=== PATIENT | female | born 1985 | race Two or more races ===

== ENCOUNTER 2018-12-08 06:30 | Emergency (ER) | payer SELFPAY ==
[~2018-12-08] VITALS: Ht 162.6 cm; Wt 59.0 kg
[2018-12-08] VITALS (7 sets, daily range): BP systolic 122–139; BP diastolic 61–89
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
--- NOTE | 2018-12-08 07:10 | NUR ---
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 Pt still unable to answer questions. [employer] at the bed side for investigation.
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
--- NOTE | 2018-12-08 08:05 | NUR ---
ED Nurse Note: Noted pt throwing up. Dr Liu notified of coffee ground emesis.
--- NOTE | 2018-12-08 08:14 | NUR ---
ED Nurse Note: Blood sent.
[2018-12-08 08:18] LABS: HEMATOCRIT 42.4 % (37.0-47.0); HEMOGLOBIN 13.9 G/DL (12.0-16.0); MEAN CORPUSCULAR VOLUME 89 FL (80-99); PLATELET COUNT 452 K/UL (150-450); RED BLOOD COUNT 4.75 M/UL (4.20-5.40); RED CELL DISTRIBUTION WIDTH 12.6 % (11.6-14.8)
[2018-12-08 08:29] LABS: WHITE BLOOD COUNT 31.6 K/UL (4.8-10.8)
--- NOTE | 2018-12-08 08:30 | NUR ---
ED Nurse Note: Dr Liu notified of WBC 31.6
[2018-12-08 08:35] LABS: ALANINE AMINOTRANSFERASE 49 U/L (12-78); ALBUMIN/GLOBULIN RATIO 1.1 (1.0-2.7); ALKALINE PHOSPHATASE 109 U/L (46-116); ANION GAP 9 mmol/L (5-15); ASPARTATE AMINO TRANSFERASE 64 U/L (15-37); BILIRUBIN,TOTAL 0.6 MG/DL (0.2-1.0); BLOOD UREA NITROGEN 12 mg/dL (7-18); CALCIUM 9.5 MG/DL (8.5-10.1); CARBON DIOXIDE 26 MMOL/L (21-32); CHLORIDE 103 MMOL/L (98-107); CREATININE 1.1 MG/DL (0.55-1.30); POTASSIUM 2.8 MMOL/L (3.5-5.1); SODIUM 138 MMOL/L (136-145)
--- NOTE | 2018-12-08 08:46 | NUR ---
ED Nurse Note: Urine sent.
[2018-12-08 09:02] LABS: APPEARANCE,URINE CLEAR; BILIRUBIN, URINE NEGATIVE (NEGATIVE); GLUCOSE, URINE (UA) NEGATIVE (NEGATIVE); KETONES,URINE 3+ (NEGATIVE); LEUKOCYTE ESTERASE ,URINE 1+ (NEGATIVE); NITRITE,URINE NEGATIVE (NEGATIVE); PH,URINE 6 (4.5-8.0); PROTEIN,URINE 3+ (NEGATIVE); UROBILINOGEN,URINE 1 MG/DL (0.0-1.0)
[2018-12-08 09:13] LABS: COLOR,URINE YELLOW
[2018-12-08] MEDS ORDERED: Tetanus-Diphtheria Toxoid 0.5ml IM ONE (09:45)
[2018-12-08] MEDS ORDERED: Tetanus/Diptheria/Pertussis Vaccine 0.5ml Syr IM ONE (09:56)
--- NOTE | 2018-12-08 10:54 | NUR ---
ED Nurse Note: Lyndon ([facility]) at the bed side for wound and dried blood cleaning on pt's face.
--- NOTE | 2018-12-08 11:17 | NUR ---
ED Nurse Note: Patient is sleeping on her bed with VSS. Pt appears to be more comfortable. Will continue to assess.
--- NOTE | 2018-12-08 11:42 | NUR ---
ED Nurse Note: Dr Liu ordered oral challenge. Pt able to swallow water and crackers. Pt is more awake and follows commands. VSS.
--- NOTE | 2018-12-08 11:56 | NUR ---
ED Nurse Note: Repeat CBC and BMP specimen sent to lab.
[2018-12-08 11:58] LABS: HEMATOCRIT 37.3 % (37.0-47.0); HEMOGLOBIN 12.4 G/DL (12.0-16.0); MEAN CORPUSCULAR VOLUME 90 FL (80-99); PLATELET COUNT 381 K/UL (150-450); RED BLOOD COUNT 4.15 M/UL (4.20-5.40); RED CELL DISTRIBUTION WIDTH 12.2 % (11.6-14.8)
[2018-12-08 12:13] LABS: ANION GAP 9 mmol/L (5-15); BLOOD UREA NITROGEN 11 mg/dL (7-18); CARBON DIOXIDE 25 MMOL/L (21-32); CHLORIDE 107 MMOL/L (98-107); CREATININE 0.8 MG/DL (0.55-1.30); POTASSIUM 3.1 MMOL/L (3.5-5.1); SODIUM 141 MMOL/L (136-145)
--- NOTE | 2018-12-08 17:45 | NUR ---
ED Nurse Note: Patient is able to ambulate with steady gait, AAO X4 and follows commands. No distress at this time. VSS. Dr Vega aware.
--- NOTE | 2018-12-08 18:16 | NUR ---
ER Nurse Note: Pt cleared by ER MD for discharge. DC instructions was given and explained to pt and verbalized understanding of teachings. All medical devices such as ID band/IV removed. Pt is AAO x4, ambulatory with steady gait and left with all personal belongings.
== END 2018-12-08 18:16 | disposition home or self-care (01) ==
LOC: EDBD 06:30 → EMR 06:56
DX: S02.81XA Fracture of other specified skull and facial bones, right side, initial encounter for closed fracture (principal); S01.111A Laceration without foreign body of right eyelid and periocular area, initial encounter; Y09 Assault by unspecified means; Y92.89 Other specified places as the place of occurrence of the external cause; Z23 Encounter for immunization
CPT/HCPCS: 12013; 36415; 70450; 70486; 71045; 72125; 80048; 80053; 81003; 84702; 85007; 85025; 90471; 90714; 96361; 96374; 99284; G0480; J2405; 80329; 90715; J8499